=== PATIENT | female | born 1985 | race Caucasian/White ===

== ENCOUNTER 2018-09-30 16:00 | Observation (INO) ==
[2018-09-30 16:45] LABS: Basophils % 0.3 %; Eosinophils # 0.1 K/mcL (0.0-0.6); Eosinophils % 0.6 %; Hematocrit 39.9 % (35.3-44.9); Hemoglobin 13.4 g/dL (11.5-15.4); Immature Granulocytes % 1.1 % (0-4); Lymphocytes # 1.4 K/mcL (0.6-4.6); Lymphocytes % 12.7 %; Mean Corpuscular HGB Conc 33.6 g/dL (31.6-35.5); Mean Corpuscular Hemoglobin 28.4 pg (28.0-33.3); Mean Corpuscular Volume 84.5 fL (83.0-100.0); Mean Platelet Volume 12.1 fL (9.4-12.4); Monocytes # 0.6 K/mcL (0.0-1.3); Monocytes % 5.9 %; Neutrophils # 8.6 K/mcL (1.6-8.9); Nucleated Red Blood Cells 0.2 /100 WBC (0); Platelet Count 161 K/mcL (140-400); Red Blood Count 4.72 M/mcL (3.82-4.97); Red Cell Distribution Width 13.7 % (11.5-14.5); Segmented Neutrophils % 79.4 %; White Blood Count 10.8 K/mcL (4.3-11.1)
[2018-09-30 16:54] LABS: Amphetamine Screen,Urine Negative ng/mL (Cutoff=1000); Barbiturate Screen,Urine Negative ng/mL (Cutoff=200); Benzodiazepines Screen,Urine Negative ng/mL (Cutoff=200); Cannabinoid Screen,Urine Negative ng/mL (Cutoff = 50); Cocaine Screen,Urine Negative ng/mL (Cutoff= 300); Opiate Screen,Urine Negative ng/mL (Cutoff=300); Phencyclidine Screen,Urine Negative ng/mL (Cutoff=25)
[2018-09-30 17:08] LABS: Alanine Aminotransferase 19 Units/L (7-52); Aspartate Amino Transferase 18 Units/L (13-39); BUN/Creatinine Ratio 16 (6-26); Blood Urea Nitrogen 8 mg/dL (6-20); Lactate Dehydrogenase 179 Units/L (140-271); Uric Acid 5.1 mg/dL (2.3-7.6); eGFR For African Americans > 60 (> 60); eGFR For Non-African Americans > 60 (> 60)
--- NOTE | 2018-10-13 18:16 | OB Labor Progress Note ---
Date of Encounter: 09/30/18 Time of Encounter: 16:00 Labor Progress Note - Subjective Subjective: Pt presents from office with elevated bp and ALCANTAR. no swelling, vison changes, ruq pain or n/v. - Heart Tones Heart Tones: RNST - Gonzales Gonzales: no uc's - Interventions Interventions: NOrmal PIH labs - Plan Plan: D/c home
== END 2018-09-30 18:30 | disposition home health service (06) ==
LOC: 1NENULAB
PROVIDERS: ADMIT Obstetrics & Gynecology; ATTEND Obstetrics & Gynecology

== ENCOUNTER 2018-10-21 08:08 | Inpatient (IN) ==
[2018-10-21] MEDS ORDERED: Famotidine 20 MG/2 ML VIAL IVP ONE (08:43)
[2018-10-21] MEDS ORDERED: Ringers Solution, Lactated 1,000 ML IVC ONE (08:43)
[2018-10-21] MEDS ORDERED: CeFAZolin Premix DUPLEX 2,000 MG/50 ML BAG IVPB ONE (08:43)
[2018-10-21] MEDS ORDERED: Metoclopramide 10 MG/2 ML VIAL IVP ONE (08:43)
[2018-10-21] MEDS ORDERED: Ringers Solution, Lactated 1,000 ML IVC SCH (08:45)
--- NOTE | 2018-10-21 09:09 | OB/GYN History & Physical ---
Date of Encounter: 10/21/18 Time of Encounter: 08:59 Assessment and Plan (1) 38 weeks gestation of Current visit: No Status: Acute PT at 38 weeks gestation presents for repeat with rupture of membranes and contractions. Will proceed with repeat . Questions answered and consent has been obtained. History of Present Illness Chief complaint: Here for repeat , rupture of membranes and labor. HPI: Ms. Gan is a 33 year old female female at 38 w6d presents with rupture of membranes (confirmed by SSE by me) a little after 5:30 this am. She is now having cramping that is worsening. She has h/o prior c-sec for FTP and desires a repeat . Past Med Surg Social Fam HX - Past Medical History Source: patient, old records reviewed Medical history: no medical history Additional medical history: "RT SHOULDER PROBLEMS" Psychiatric history: depression - Past Surgical History Surgical History: other Additional surgical history: c/s X1 - Social History Smoking Status: Former smoker Smokeless Tobacco Status: No Alcohol use: none Drug use: none - Family History Daughter Family Member Ethnicity: Non- Living Status: Still Living Hx Family Cardiac Disorders: No Hx Family Respiratory Disorders: No Hx Family Cancer: No Hx Family GI Disorders: No Hx Family Endocrine Disorder: Yes Hx Family Neuromuscular Disorders: No Hx Family Neurologic Disorders: No Hx Family HEENT Disorders: No Hx Family Autoimmune Disorders: No Father Adopted: No Family Member Ethnicity: Non- Living Status: Still Living Hx Family Cardiac Disorders: Yes Hx Family Respiratory Disorders: No Hx Family Cancer: No Hx Family GI Disorders: No Hx Family Genitourinary Disorders: No Hx Family Endocrine Disorder: No Hx Family Musculoskeletal Disorders: No Hx Family Neuromuscular Disorders: No Hx Family Neurologic Disorders: No Hx Family HEENT Disorders: No Hx Family Autoimmune Disorders: No Hx Family Reproductive Disorders: No Hx Family Psychosocial Disorders: No Hx Family Medical Disorders: No Obstetrical History - Pregnancies : 2 Medications and Allergies Folic Acid 4 mg PO DAILY 09/30/18 [History] Loratadine [Claritin] 1 tab PO DAILY 09/30/18 [History] Vit #108/Iron/FA [ One Tablet] 1 tab PO DAILY 09/30/18 [History] Allergy/AdvReac Type Severity Reaction Status Date / Time azithromycin [From Zithromax] Allergy Hives Verified 09/30/18 16:23 Sulfa (Sulfonamide Allergy Hives Verified 09/30/18 16:23 Antibiotics) doxycycline AdvReac Nausea Verified 09/30/18 16:23 latex AdvReac Hives Verified 09/30/18 16:23 Exam - Constitutional Constitutional: well developed - HEENT HEENT: EOMI, PERRL - Neck Neck exam: full ROM - Lungs Respiratory exam: CTAB - Cardiovascular Cardiovascular exam: RRR - Abdomen Abdomen: Present: gravid, non tender - Extremities Extremities exam: full ROM Deep Tendon Reflex Grade: 2+ Normal Results All other labs normal.
[2018-10-21 09:48] LABS: Amphetamine Screen,Urine Negative ng/mL (Cutoff=1000); Barbiturate Screen,Urine Negative ng/mL (Cutoff=200); Benzodiazepines Screen,Urine Negative ng/mL (Cutoff=200); Cannabinoid Screen,Urine Negative ng/mL (Cutoff = 50); Cocaine Screen,Urine Negative ng/mL (Cutoff= 300); Creatinine,Urine 64 mg/dL; Opiate Screen,Urine Negative ng/mL (Cutoff=300); Phencyclidine Screen,Urine Negative ng/mL (Cutoff=25); Protein/Creatinine Ratio,Urine 0.48 mg/mg (0.00-0.20)
[2018-10-21 09:51] LABS: Basophils # 0.1 K/mcL (0.0-0.2); Basophils % 0.5 %; Eosinophils # 0.1 K/mcL (0.0-0.6); Eosinophils % 0.6 %; Hematocrit 40.5 % (35.3-44.9); Hemoglobin 13.2 g/dL (11.5-15.4); Immature Granulocytes % 1.6 % (0-4); Lymphocytes # 1.5 K/mcL (0.6-4.6); Lymphocytes % 13.8 %; Mean Corpuscular HGB Conc 32.6 g/dL (31.6-35.5); Mean Corpuscular Hemoglobin 27.8 pg (28.0-33.3); Mean Corpuscular Volume 85.4 fL (83.0-100.0); Mean Platelet Volume 12.2 fL (9.4-12.4); Monocytes # 0.6 K/mcL (0.0-1.3); Monocytes % 5.4 %; Neutrophils # 8.5 K/mcL (1.6-8.9); Platelet Count 166 K/mcL (140-400); Red Blood Count 4.74 M/mcL (3.82-4.97); Red Cell Distribution Width 14.2 % (11.5-14.5); Segmented Neutrophils % 78.1 %; White Blood Count 10.9 K/mcL (4.3-11.1)
[2018-10-21 09:58] LABS: Alanine Aminotransferase 16 Units/L (7-52); Aspartate Amino Transferase 20 Units/L (13-39); BUN/Creatinine Ratio 20 (6-26); Blood Urea Nitrogen 11 mg/dL (6-20); Lactate Dehydrogenase 180 Units/L (140-271); Uric Acid 4.9 mg/dL (2.3-7.6); eGFR For African Americans > 60 (> 60); eGFR For Non-African Americans > 60 (> 60)
--- NOTE | 2018-10-21 10:21 | Anesthesia Evaluation PreOp ---
Date of Encounter: 10/21/18 Time of Encounter: 10:19 - Past History Planned Operation: Repeat C/S Cardiac History: Denies any Significant Hx Pulmonary History: Denies Any Significant HX [employer] History: Denies Any Significant HX Other Medical History: GERD Anesthesia History: No Prior Anesthetic Complications, Past Anesthesia (C/S) : Yes Test: Positive Alcohol Use: none Drug use: none Medications and Allergies Folic Acid 4 mg PO DAILY 09/30/18 [History] Loratadine [Claritin] 1 tab PO DAILY 09/30/18 [History] Vit #108/Iron/FA [ One Tablet] 1 tab PO DAILY 09/30/18 [History] Allergy/AdvReac Type Severity Reaction Status Date / Time azithromycin [From Zithromax] Allergy Hives Verified 09/30/18 16:23 Sulfa (Sulfonamide Allergy Hives Verified 09/30/18 16:23 Antibiotics) doxycycline AdvReac Nausea Verified 09/30/18 16:23 latex AdvReac Hives Verified 09/30/18 16:23 - Meds/Allergy Pre-op Review Medications Reviewed: Yes Allergies Reviewed: Yes Beta Blockers on Current Med List: No Anesthesia Results - Labs 10/21/18 08:30 10/21/18 08:30 Anesthesia Exam 132/78 88 fht 132 Height: 5'3" Weight: 117k NPO (# of Hours): 12 Pain Scale: 5 Pain Scale Used: Numeric (1 - 10) - HEENT Pupil (Motor): Pupils equal Mallampati: II Teeth: Normal Oral Opening: Greater than 3 - [employer] LOC: Oriented [employer] Motor: Normal RUE, Normal LUE, Normal RLE, Normal LLE, Normal Face [employer] Sensory: Normal: RUE, LUE, RLE, LLE, Face - Cardiac Rhythm: Regular Murmur: None - Pulmonary Breath Sounds: bilateral Clear Respiratory Effort: Symmetrical Anesthesia Assess/Plan Level of consciousness: Cooperative Anesthetic Plan: Spinal, Epidural (risks discussed, questions answered, conse nted) Autologous Blood: No Monitoring Plan: Standard Monitors Recovery Plan: PACU
[2018-10-21] MEDS ORDERED: *HR* FentaNYL (PF) 100 MCG/2 ML VIAL ONE (10:29)
[2018-10-21] MEDS ORDERED: *HR* Morphine Sulfate/PF 10 MG/10 ML AMPUL ONE (10:29)
[2018-10-21] MEDS ORDERED: *HR* Oxytocin 10 UNIT/ML VIAL IM ONE (11:17)
--- NOTE | 2018-10-21 11:28 | Anesthesia Procedures ---
Date of Encounter: 10/21/18 Time of Encounter: 11:26 Procedures: Anesthesia - Epidural/Spinal Patient ID/Chart reviewed: Yes Patient examined: Yes OB Eval: Gestational age: 38 OB Eval: : 2 OB Eval: Hx Para: 1 OB Eval: Dilated at (cm): 2 OB Eval: Contractions: Non-stressed pattern Consent Obtained: Yes Supplemental Oxygen: Nasal Cannula Supplemental Oxygen Rate (L/min): 4 Site Prep: Aseptic Technique, Sterile prep and drape, 0.5% Chlorhexidine/Alcohol Patient position: upright Local Anesthetic: Lidocaine 1% Amount of Local Anesthetic used: 3 Interspace Used: L2-L3 Loss of Resistance (NADIA): No Blood: No CSF: Yes Paresthesia: No Spinal Dose: marcaine 12mg, duramorph 0.25mg, fentanyl 10mcg Procedure: aseptic, isaiah well, VSS, effective Vitals + FHT's: 0/78 88 16 fht 144
[2018-10-21] MEDS ORDERED: *HR* Meperidine 25 MG/ML SYRINGE IVP PRN (11:45)
[2018-10-21] MEDS ORDERED: *HR* HYDROmorphone (PF) 1 MG/ML SYRINGE IVP PRN (11:45)
[2018-10-21] MEDS ORDERED: Acetaminophen IV 1,000 MG/100 ML INFUS..BTL IVPB ONE (11:45)
[2018-10-21] MEDS ORDERED: Ondansetron 4 MG/2 ML VIAL IVP PRN ×2 (11:45→14:44)
--- NOTE | 2018-10-21 12:25 | OB/GYN Procedure Note ---
Section - Date of procedure: 10/21/18 Preop diagnosis: desires repeat , other (Spontaneous rupture membranes, early labor) Post-op diagnosis: same Procedure: section, repeat low transverse Surgeon: Melchor Egan Blood Loss: 300 Was there an assistant professor of criminal justice present: Yes Perioperative Nurse: Dilia Bal Anesthesia Type: Spinal section complications: none Disposition: PACU Specimens: Placenta - (s) A Delivery Date: 10/21/18 Delivery Time: 11:26 Presentation: vertex Gender: Female Viability: Viable Pounds: 7 Ounces: 1 at 1 minute: 8 at 5 minutes: 9 Shoulder Dystocia: not encountered Specimens collected: cord blood Placenta: spontaneous Cord: nuchal cord - Narrative Narrative: Patient's a 33-year-old 2 para 1 female presented 38 weeks and 6 days gestation with spontaneous rupture membranes when she woke up 5:30 this morning followed by inserting contractions of worsening intensity.. I did performed sterile speculum exam did show large pole of strongly nitrazine positive fluid. Again discussed with patient options she desired to proceed with repeat section. She had previously signed consent she had no further questions. Description of procedure: Patient was taken operating room where spinal anesthesia was administered. She is prepped draped in usual sterile fashion and bladder was drained of clear urine. We tested and determined adequate anesthesia. Scalp was used to make a Pfannenstiel skin incision which was sharply take down the rectus fascia. Fascia incised midline fascial incision was extended bilaterally. Plane was developed between rectus muscle rectus fascia and came was entered sharply. Bladder blade was placed and bladder flap was developed and lower uterine segment. Scalpel was used to make a low reno sverse uterine incision this was extended bluntly bilaterally membranes ruptured clear fluid. was delivered from vertex presentation. Cord was clamped and cut and oropharynx nasopharynx were suctioned of clear fluid. was handed nurse personnel who were in attendance. Placenta was delivered manually and uterine cavity was massaged free of all residual tissue. Uterus was closed 0 Vicryl running lock stitch. Second imbricating layer was placed with the first obtain hemostasis. The lower uterine segment below the incision left side was quite thin with some reinforcing stitches in here. Irrigation was performed hemostasis was ensured. Peritoneum was closed with 3-0 Vicryl in a running manner. Again hemostasis was ensured. Fascia was closed with 0 Vicryl in running manner. Again irrigation was performed hemostasis was assured. Skin edges reapproximated with 4-0 Vicryl. Steri-Strips are applied all sponge and instruments counts are correct patient was taken recovery in good condition.
[2018-10-21] MEDS ORDERED: Rho Immune Globulin 1,500 UNIT SYRINGE IM ONE (14:44)
[2018-10-21] MEDS ORDERED: Metoclopramide 10 MG/2 ML VIAL IVP PRN (14:44)
[2018-10-21] MEDS ORDERED: Simethicone 80 MG TAB.CHEW PO PRN (14:44)
[2018-10-21] MEDS ORDERED: *HR* OxyCODONE/APAP 5/325 TABLET PO PRN (14:44)
[2018-10-21] MEDS ORDERED: Sennosides 8.6 MG TABLET PO PRN (14:44)
[2018-10-21] MEDS ORDERED: Oxytocin 20 units/ LR 1000 mL 20 UNIT/1,000 ML BAG IVC SCH (14:44)
[2018-10-21] MEDS: Ibuprofen 600 MG TABLET PO PRN ×2 (15:36→21:47)
[2018-10-21] MEDS: Oxytocin 20 units/ LR 1000 mL 20 UNIT/1,000 ML BAG IVC SCH (16:23)
--- NOTE | 2018-10-21 17:57 | Anesthesia Evaluation Post Op ---
Date of Encounter: 10/21/18 Time of Encounter: 13:00 - Vital Signs Vital Signs: Vital Signs/O2 Sat, Most Current Temp Pulse Resp BP Pulse Ox 97.8 F 78 12 119/78 95 10/21/18 17:00 10/21/18 17:00 10/21/18 17:00 10/21/18 17:00 10/21/18 17:00 - Lungs Lungs: Clear Ascult./Percussion - Airway Airway: Non-obstructed - Cardiovascular Regular Rate - Mental Status Mental Status: Alert & Oriented, Answers Appropriately - Pain Pain Scale: 3 Pain Scale used: Numeric (1 - 10) - Nausea Vomiting Nausea Vomiting: Not Present - Hydration Hydration: Ice chips, Abdalla catheter - Discharge PostOp Status: Transfer Patient to floor
[2018-10-22] MEDS: Oxytocin 20 units/ LR 1000 mL 20 UNIT/1,000 ML BAG IVC SCH (00:29)
[2018-10-22] MEDS: Ibuprofen 600 MG TABLET PO PRN ×3 (04:22→20:19)
[2018-10-22 05:44] LABS: Basophils % 0.3 %; Eosinophils % 0.3 %; Hematocrit 35.5 % (35.3-44.9); Immature Granulocytes % 0.8 % (0-4); Lymphocytes # 1.9 K/mcL (0.6-4.6); Lymphocytes % 14.8 %; Mean Corpuscular HGB Conc 31.8 g/dL (31.6-35.5); Mean Corpuscular Volume 87.9 fL (83.0-100.0); Mean Platelet Volume 12.3 fL (9.4-12.4); Monocytes # 0.6 K/mcL (0.0-1.3); Monocytes % 4.3 %; Neutrophils # 10.3 K/mcL (1.6-8.9); Platelet Count 169 K/mcL (140-400); Red Blood Count 4.04 M/mcL (3.82-4.97); Red Cell Distribution Width 14.6 % (11.5-14.5); Segmented Neutrophils % 79.5 %
[2018-10-22 05:46] LABS: Hemoglobin 11.3 g/dL (11.5-15.4)
[2018-10-22] MEDS: Prenatal Vit/FA 1 EACH TABLET PO SCH (08:50)
--- NOTE | 2018-10-22 10:38 | OB/GYN Progress Note ---
Date of Encounter: 10/22/18 Time of Encounter: 10:35 - Assessment and Plan (1) delivery delivered Current Visit: No Status: Acute Pt meeting all post-op milestones. Anticipate discharge home POD2. Subjective - Subjective Interval history: Pt reports incisional burning pain with ambulation. No other complaints. She is tolerating regular diet and passing flatus. Patient reports: appetite normal, voiding normally, pain well controlled, ambulating normally [place]: doing well Objective - Vital Signs Latest vital signs: Vital Signs Temp Pulse Resp BP Pulse Ox 10/22/18 09:07 16 10/22/18 08:32 98.0 F 89 14 122/74 98 10/22/18 04:00 98.0 F 91 16 123/85 99 10/22/18 00:00 98.0 F 93 16 114/73 96 10/21/18 19:52 97.9 F 91 16 145/84 97 10/21/18 18:13 97.5 F L 83 14 126/83 95 10/21/18 17:00 97.8 F 78 12 119/78 95 10/21/18 16:00 97.8 F 91 18 111/75 98 10/21/18 15:35 97.9 F 81 12 114/75 96 10/21/18 15:00 97.8 F 86 17 112/72 96 Intake and Output 10/21/18 10/22/18 10/22/18 23:59 07:59 15:59 Intake Total 0 / 0 1000 / 1000 Output Total 400 / 600 525 / 1175 650 / 1175 Balance -400 / -600 475 / -175 -650 / -175 Intake: IV Fluids 1000 / 1000 Pitocin 20 unit In 1,000 ml @ 1000 / 1000 125 mls/hr IVC .Q8H [facility] Rx#: [id number] Oral 0 / 0 Output: Urine 650 / 650 Catheter 400 / 600 525 / 525 Other: Meal Breakfast Percent of Meal Consumed 100% Stool Characteristics Normal for Patient Weight 113.897 kg Patient Weight 10/22/18 23:59 Weight 113.897 kg - Exam Lungs: bilateral: normal Chest: Normal S1, Normal S2 Extremities: Present: edema (mild LE edema bilaterally) Abdomen: Present: soft Incision: Present: dressed (dressing dry and intact) Uterus: Present: firm Fundal Height: 0 (U/U) - Labs Labs: Laboratory Results - last 24 hr 10/22/18 04:51 WBC 13.0 H RBC 4.04 Hgb 11.3 L D Hct 35.5 MCV 87.9 MCH 28.0 MCHC 31.8 RDW 14.6 H Plt Count 169 MPV 12.3 Immature Gran % 0.8 Seg Neutrophils % 79.5 Lymphocytes % 14.8 Monocytes % 4.3 Eosinophils % 0.3 Basophils % 0.3 Neutrophils # 10.3 H Lymphocytes # 1.9 Monocytes # 0.6 Eosinophils # 0.0 Basophils # 0.0
[2018-10-22] MEDS ORDERED: Acetaminophen 325 MG TABLET PO SCH (12:00)
[2018-10-22] MEDS: *HR* OxyCODONE/APAP 5/325 TABLET PO PRN (22:04)
[2018-10-23] MEDS: Ibuprofen 600 MG TABLET PO PRN ×2 (02:33→09:22)
[2018-10-23] MEDS: *HR* OxyCODONE/APAP 5/325 TABLET PO PRN (04:05)
[2018-10-23] MEDS: Prenatal Vit/FA 1 EACH TABLET PO SCH (07:16)
[2018-10-23 08:09] VITALS: BP 122/76
--- NOTE | 2018-10-23 11:44 | Discharge Summary ---
Date of Encounter: 10/23/18 Time of Encounter: 11:49 - Discharge Diagnosis (1) delivery delivered Priority: Primary Status: Acute Comments: Patient meeting day two milestones. Pain well-controlled with prescribed medications. Voiding without difficulty, tolerating regular diet, bleeding light. No bowel movement yet. Anticipate discharge today (2) Nexplanon insertion Priority: Secondary Status: Acute Comments: Patient is requesting Nexplanon for contraception prior to discharge - Discharge Medications Prescriptions: New Ibuprofen [Motrin] 600 mg PO Q6HR PRN #60 tablet PRN Reason: Cramping OxyCODONE/APAP 5/325 [Percocet 5/325 MG] 1 each PO Q6HR PRN 7 Days #28 tablet PRN Reason: Moderate pain 4-6 Acetaminophen [Tylenol] 650 mg PO Q6HR tablet Docusate [Colace] 100 mg PO BID #60 capsule Simethicone [Gas-X] 80 mg PO TID PRN tab.chew PRN Reason: Dyspepsia Continued Vit #108/Iron/FA [ One Tablet] 1 tab PO DAILY Loratadine [Claritin] 1 tab PO DAILY Discontinued Folic Acid 4 mg PO DAILY Home Medications: Loratadine [Claritin] 1 tab PO DAILY 09/30/18 [History] Vit #108/Iron/FA [ One Tablet] 1 tab PO DAILY 09/30/18 [History] Acetaminophen [Tylenol] 650 mg PO Q6HR tablet 10/23/18 [Rx] Docusate [Colace] 100 mg PO BID #60 capsule 10/23/18 [Rx] Ibuprofen [Motrin] 600 mg PO Q6HR PRN #60 tablet 10/23/18 [Rx] OxyCODONE/APAP 5/325 [Percocet 5/325 MG] 1 each PO Q6HR PRN 7 Days #28 tablet 10/23/18 [Rx] Simethicone [Gas-X] 80 mg PO TID PRN tab.chew 10/23/18 [Rx] Allergies/Adverse Reactions: Allergy/AdvReac Type Severity Reaction Status Date / Time azithromycin [From Zithromax] Allergy Hives Verified 09/30/18 16:23 Sulfa (Sulfonamide Allergy Hives Verified 09/30/18 16:23 Antibiotics) doxycycline AdvReac Nausea Verified 09/30/18 16:23 latex AdvReac Hives Verified 09/30/18 16:23 Data Procedures and tests throughout hospitalization: Laboratory Tests 10/21/18 10/21/18 10/21/18 08:30 08:30 08:30 WBC 10.9 RBC 4.74 Hgb 13.2 Hct 40.5 MCV 85.4 MCH 27.8 L MCHC 32.6 RDW 14.2 Plt Count 166 MPV 12.2 Immature Gran % 1.6 Seg Neutrophils % 78.1 Lymphocytes % 13.8 Monocytes % 5.4 Eosinophils % 0.6 Basophils % 0.5 Neutrophils # 8.5 Lymphocytes # 1.5 Monocytes # 0.6 Eosinophils # 0.1 Basophils # 0.1 BUN 11 Creatinine 0.55 L Est GFR ( Amer) > 60 Est GFR (Non-Af Amer) > 60 BUN/Creatinine Ratio 20 Uric Acid 4.9 AST 20 ALT 16 Lactate Dehydrogenase 180 Urine Creatinine 64 Protein/Creatinin Ratio 0.48 H Urine Total Protein 31 H Urine Opiates Screen Negative Ur Barbiturates Screen Negative Ur Phencyclidine Scrn Negative Ur Amphetamines Screen Negative U Benzodiazepines Scrn Negative Urine Cocaine Screen Negative U Marijuana (THC) Screen Negative Ur Drug Screen Interp See Below 10/22/18 04:51 WBC 13.0 H RBC 4.04 Hgb 11.3 L D Hct 35.5 MCV 87.9 MCH 28.0 MCHC 31.8 RDW 14.6 H Plt Count 169 MPV 12.3 Immature Gran % 0.8 Seg Neutrophils % 79.5 Lymphocytes % 14.8 Monocytes % 4.3 Eosinophils % 0.3 Basophils % 0.3 Neutrophils # 10.3 H Lymphocytes # 1.9 Monocytes # 0.6 Eosinophils # 0.0 Basophils # 0.0 BUN Creatinine Est GFR ( Amer) Est GFR (Non-Af Amer) BUN/Creatinine Ratio Uric Acid AST ALT Lactate Dehydrogenase Urine Creatinine Protein/Creatinin Ratio Urine Total Protein Urine Opiates Screen Ur Barbiturates Screen Ur Phencyclidine Scrn Ur Amphetamines Screen U Benzodiazepines Scrn Urine Cocaine Screen U Marijuana (THC) Screen Ur Drug Screen Interp Date of admission: 10/21/18 08:08 Primary care physician: Natalia Naranjo CNP Discharging clinician: Bridget Edmondson Anticipated date of discharge: 10/23/18 - Patient Status Disposition: Home, Self-Care Condition: Good Functional capacity at discharge: independent ambulation Overall status at discharge: patient is progressing back to baseline - Discharge Instructions Follow Up With: Natalia Naranjo CNP [Primary Care Provider] - Melchor Gamez MD [Partnered Physician] - - Diet and Activity Activity: resume usual activities as tolerated Diet: regular diet Hospital Course Reason for admission: rupture of membranes Delivery: section Episiotomy: none Laceration: none Other procedures: other (Nexplanon insertion) complications: none Discharge diagnosis: IUP at term delivered baby: female Hospital course: Date of procedure: 10/21/18 Preop diagnosis: desires repeat , other (Spontaneous rupture membranes, early labor) Post-op diagnosis: same Procedure: section, repeat low transverse Surgeon: Melchor Egan Blood Loss: 300 Was there an pediatric physician assistant present: Yes [place] Barrel Ribs: Dilia Bal Anesthesia Type: Spinal section complications: none Disposition: PACU Specimens: Placenta - (s) A Infant Delivery Date: 10/21/18 Infant Delivery Time: 11:26 Presentation: vertex Gender: Female Viability: Viable Pounds: 7 Ounces: 1 at 1 minute: 8 at 5 minutes: 9 Shoulder Dystocia: not encountered Specimens collected: cord blood Placenta: spontaneous Cord: nuchal cord - Narrative Narrative: Patient's a 33-year-old 2 para 1 female presented 38 weeks and 6 days gestation with spontaneous rupture membranes when she woke up 5:30 this morning followed by inserting contractions of worsening intensity.. I did performed sterile speculum exam did show large pole of strongly nitrazine positive fluid. Again discussed with patient options she desired to proceed with repeat section. She had previously signed consent she had no further questions. Description of procedure: Patient was taken operating room where spinal anesthesia was administered. She is prepped draped in usual sterile fashion and bladder was drained of clear urine. We tested and determined adequate anesthesia. Scalp was used to make a Pfannenstiel skin incision which was sharply take down the rectus fascia. Fascia incised midline fascial incision was extended bilaterally. Plane was developed between rectus muscle rectus fascia and came was entered sharply. Bladder blade was placed and bladder flap was developed and lower uterine segment. Scalpel was used to make a low transverse uterine incision this was extended bluntly bilaterally membranes ruptured clear fluid. Infant was delivered from vertex presentation. Cord was clamped and cut and oropharynx nasopharynx were suctioned of clear fluid. Infant was handed nurse personnel who were in attendance. Placenta was delivered manually and uterine cavity was massaged free of all residual tissue. Uterus was closed 0 Vicryl running lock stitch. Second imbricating layer was placed with the first obtain hemostasis. The lower uterine segment below the incision left side was quite thin with some reinforcing stitches in here. Irrigation was performed hemostasis was ensured. Peritoneum was closed with 3-0 Vicryl in a running manner. Again hemostasis was ensured. Fascia was closed with 0 Vicryl in running manner. Again irrigation was performed hemostasis was assured. Skin edges reapproximated with 4-0 Vicryl. Steri-Strips are applied all sponge and instruments counts are correct patient was taken recovery in good condition. Time Attestation: Total time spent providing and/or coordinating discharge services: Time Spent: Less than 30 minutes - VTE Documentation of Mechanical Device: Graduated compression elastic hosiery Exam - Constitutional Vitals: Temp Pulse Resp BP Pulse Ox 98.0 F 86 14 122/76 98 10/23/18 08:08 10/23/18 08:08 10/23/18 08:34 10/23/18 08:08 10/22/18 20:25 General appearance IM: A&O X 3, pleasant, no acute distress, answers questions appropriately - Respiratory Respiratory exam: Present: CTAB. Absent: respiratory distress - Cardiovascular Cardiovascular exam IM: Present: RRR, +S1, +S2. Absent: irregular rhythm - GI/Abdominal GI/Abdominal exam IM: normal bowel sounds Incision: normal, dry, intact - Rectal Rectal exam: deferred - External exam: normal external exam Uterine Tone: Firm Uterus Position: At Umbilicus, Midline - Extremities Exam Extremities exam IM: Present: full ROM, normal capillary refill, normal inspection. Absent: calf tenderness - Neurological Exam Neurological exam: alert, normal gait, oriented X3
[2018-10-23] MEDS ORDERED: Etonogestrel 68 MG IMPLANT IL ONE (11:46)
[2018-10-23] MEDS ORDERED: Lidocaine/EPI 1:100k 1% 30 ML VIAL INFILT ONE (11:47)
--- NOTE | 2018-10-23 12:30 | OB/GYN Procedure Note ---
OB-HEEL BLACKER: Procedure - Diagnosis Date of procedure: 10/23/18 Pre-op diagnosis: Desires contraception Post-op diagnosis: same - Procedure Procedure: Nexplanon insertion Surgeon: Bridget Edmondson Was there an trading assistant present: No Anesthesia provider: Bridget Edmondosn Anesthesia Type: Local Procedure Complications: None Disposition: no change Narrative: Patient desires Nexplanon for control and would like to have it placed p rior to discharge. Examination: Informed consent was obtained and time out performed. Patient was placed in supine position with left arm in the appropriate position. Betadine was used to prep the arm in sterile fashion. 1% Lidocaine was used for anesthesia. The Nexplanon was inserted in the subcutaneous tissue to the appropriate length then the Nexplanon was released. Both myself and the patient can palpate the idalia without difficulty. Bandage and pressure dressing was applied. Patient tolerate the procedure well. Patient was instructed on wound care and is to follow up as needed. Patient educated on back up control for 7 days. Procedure: Correct patient, procedure, and site were verified and time out performed per policy. Therapeutic Injections: 3 mL of Lidocaine given at site of insertion by Aurelio Edmondson CNM
== END 2018-10-23 13:09 | disposition home or self-care (01) | DRG 788 ==
LOC: 1NENULAB → OBSVTOIN 08:08 → 1NENUOBS 13:29
PROVIDERS: ADMIT Obstetrics & Gynecology; ATTEND Obstetrics & Gynecology